=== PATIENT | female | born 1975 | race Caucasian/White ===

== ENCOUNTER 2018-05-13 09:15 | Outpatient (CLI) | payer BC ==
[2018-05-13 10:41] LABS: CALCIUM 9.1 mg/dL (8.4-11.0); CREATININE 0.92 mg/dL (0.55-1.30); POTASSIUM 3.5 mmol/L (3.5-5.1)
[2018-05-13 10:51] LABS: BILIRUBIN,URINE NEGATIVE (NEGATIVE); BLOOD, URINE NEGATIVE (NEGATIVE); CLARITY/URINE SL HAZY (CLEAR); COLOR,URINE YELLOW (YELLOW); GLUCOSE,URINE NEGATIVE (NEGATIVE); KETONES,URINE NEGATIVE (NEGATIVE); LEUKOCYTE ESTERASE ,URINE NEGATIVE (NEGATIVE); NITRITE, URINE NEGATIVE (NEGATIVE); PH,URINE 6.5 (5.0-8.0); PROTEIN URINE TRACE (NEGATIVE); UROBILINOGEN,URINE 0.2 (0.2-1.0)
[2018-05-13 10:56] LABS: ALBUMIN 3.4 g/dL (3.4-4.8); THYROID STIMULATING HORMONE 3.3 uIu/mL (0.34-4.82); TOTAL BILIRUBIN 0.3 mg/dL (0.0-1.0); URIC ACID 8.1 mg/dL (2.4-7.0)
[2018-05-13 11:18] LABS: BASOPHILS % (AUTO) 0.7 % (0.0-2.0); EOSINOPHILS % (AUTO) 1.3 % (0.0-4.0); HEMATOCRIT 40.1 % (36-48); HEMOGLOBIN 13.5 g/dL (12.0-16.0); LYMPHOCYTES % (AUTO) 31.7 % (20.5-51.5); MEAN CORPUSCULAR HEMOGLOBIN 29 pg (27-31); MEAN CORPUSCULAR HGB CONC 34 % (32-36); MEAN CORPUSCULAR VOLUME 86 fL (79.0-98.0); MONOCYTES % (AUTO) 6.3 % (1.7-9.3); PLATELET COUNT (AUTO) 266 K/uL (130-430); RED BLOOD CELL COUNT(AUTO) 4.64 MIL/uL (4.2-6.2); RED CELL DISTRIBUTION WIDTH 13.3 % (9.0-15.0); WHITE BLOOD COUNT (AUTO) 8.9 K/uL (4.8-10.8)
[2018-05-13 11:19] LABS: BASOPHILS # (AUTO) 0.1 K/uL (0.0-0.2); EOSINOPHILS # (AUTO) 0.1 K/uL (0.0-0.4); LYMPHOCYTES # (AUTO) 2.8 K/uL (1.0-5.5); MONOCYTES # (AUTO) 0.6 K/uL (0.0-1.0); NEUTROPHILS # (AUTO) 5.3 K/uL (1.8-7.7)
[2018-05-17 09:01] LABS: HEMOGLOBIN A1C 6.6 % (4.8-5.6)
== END 2018-05-13 18:45 | disposition home or self-care (01) ==
LOC: SUS 09:15
PROVIDERS: ATTEND Internal Medicine
DX: K80.20 Calculus of gallbladder without cholecystitis without obstruction (principal)
CPT/HCPCS: 36415; 76700-TC; 80053; 80061; 81003; 82306; 82607; 83036; 84443-TC; 84550-TC; 85025

== ENCOUNTER 2018-05-22 07:42 | Emergency (ER) | payer BC ==
[~2018-05-22] VITALS: Ht 162.6 cm; Wt 115.2 kg
--- NOTE | 2018-05-22 07:55 | NUR ---
Patient to ER bed 6 to gown for evaluation. Side rails up. Report given to Dion BARKER.
--- NOTE | 2018-05-22 07:55 | NUR ---
Pt c/o Right flank pain that radiates to right back and down right leg x 3 days. Pt states that pain onset while traveling to [place] and back from constant walking and wearing a back pack. Denies dysuria last BM yesterday, normal.
[2018-05-22 07:56] VITALS: BP_SYST 121
[2018-05-22] MEDS ORDERED: NACL 0.9% 1,000 ML IV ONE (08:22)
[2018-05-22] MEDS ORDERED: PANTOPRAZOLE SODIUM 40 MG/VIAL (PROTONIX) IVP ONE (08:30)
[2018-05-22] MEDS ORDERED: KETOROLAC TROMETHAMINE 30 MG VIAL IVP ONE (08:30)
--- NOTE | 2018-05-22 08:45 | NUR ---
Dr. Fisher at bedside.
[2018-05-22 09:00] LABS: CALCIUM 8.9 mg/dL (8.4-11.0); CREATININE 1.67 mg/dL (0.55-1.30); POTASSIUM 3.3 mmol/L (3.5-5.1)
--- NOTE | 2018-05-22 09:00 | NUR ---
Pt resting quietly, denies c/o pain or discomfort at this time.
[2018-05-22 09:04] LABS: ALBUMIN 3.4 g/dL (3.4-4.8); BASOPHILS % (AUTO) 0.5 % (0.0-2.0); EOSINOPHILS # (AUTO) 0.1 K/uL (0.0-0.4); EOSINOPHILS % (AUTO) 1.2 % (0.0-4.0); HEMATOCRIT 40.2 % (36-48); HEMOGLOBIN 13.4 g/dL (12.0-16.0); LYMPHOCYTES # (AUTO) 2.6 K/uL (1.0-5.5); LYMPHOCYTES % (AUTO) 27.1 % (20.5-51.5); MEAN CORPUSCULAR HEMOGLOBIN 29 pg (27-31); MEAN CORPUSCULAR HGB CONC 33 % (32-36); MEAN CORPUSCULAR VOLUME 88 fL (79.0-98.0); MONOCYTES # (AUTO) 0.7 K/uL (0.0-1.0); MONOCYTES % (AUTO) 7.7 % (1.7-9.3); NEUTROPHILS % (AUTO) 63.5 % (40.0-70.0); PLATELET COUNT (AUTO) 303 K/uL (130-430); RED BLOOD CELL COUNT(AUTO) 4.59 MIL/uL (4.2-6.2); RED CELL DISTRIBUTION WIDTH 13.3 % (9.0-15.0); TOTAL BILIRUBIN 0.5 mg/dL (0.0-1.0); WHITE BLOOD COUNT (AUTO) 9.4 K/uL (4.8-10.8)
[2018-05-22] MEDS ORDERED: fentaNYL CITRATE/PF 100 MCG/2 ML AMP IVP ONE (10:45)
--- NOTE | 2018-05-22 11:46 | NUR ---
Patient given written and verbal discharge instructions and verbalizes understanding. ER MD discussed with patient the results and treatment provided. Patient in stable condition. ID arm band removed. IV catheter removed intact and dressing applied, no active bleeding. Rx of Motrin, Medpack, Omeprazole given. Patient educated on pain management and to follow up with PMD. Pain Scale 3/10 tolerable for patient. Opportunity for questions provided and answered. Medication side effect fact sheet provided.
[2018-05-22 12:30] VITALS: BP_SYST 112
== END 2018-05-22 11:46 | disposition home or self-care (01) ==
LOC: SED 07:42
DX: M54.41 Lumbago with sciatica, right side (principal); R10.13 Epigastric pain; R10.11 Right upper quadrant pain; R03.0 Elevated blood-pressure reading, without diagnosis of hypertension; Z88.0 Allergy status to penicillin; Z88.1 Allergy status to other antibiotic agents; Z88.8 Allergy status to other drugs, medicaments and biological substances; Z90.49 Acquired absence of other specified parts of digestive tract
CPT/HCPCS: 36415; 76700; 80053; 83690; 85025; 96374; 96375; 99285; C9113; J1885; J3010; J7030

== ENCOUNTER 2018-05-25 08:20 | Outpatient (CLI) | payer BC ==
[2018-05-25] MEDS ORDERED: DIATR MEGLU/DIATRIZ SOD 30 ML SOLUTION PO ONE (08:36)
== END 2018-05-25 19:13 | disposition home or self-care (01) ==
LOC: SCT 08:20
PROVIDERS: ATTEND Internal Medicine
DX: R10.11 Right upper quadrant pain (principal); R11.2 Nausea with vomiting, unspecified; E11.9 Type 2 diabetes mellitus without complications
CPT/HCPCS: 74176; Q9964

== ENCOUNTER 2018-06-02 08:57 | Outpatient (CLI) | payer BC | END 2018-06-02 21:33 | disposition home or self-care (01) | LOC: SUS 08:57 | PROVIDERS: ATTEND Internal Medicine | DX: N88.8 Other specified noninflammatory disorders of cervix uteri (principal) | CPT/HCPCS: 76830-TC; 76857 ==

== ENCOUNTER 2018-07-30 19:17 | Inpatient (IN) | payer BC ==
[~2018-07-30] VITALS: Ht 165.1 cm; Wt 117.9 kg
[2018-07-30 19:17] VITALS: BP_SYST 145
[2018-07-30] MEDS ORDERED: fentaNYL CITRATE/PF 100 MCG/2 ML AMP IVP ONE (20:00)
[2018-07-30 20:02] LABS: BASOPHILS # (AUTO) 0.1 K/uL (0.0-0.2); BASOPHILS % (AUTO) 0.4 % (0.0-2.0); EOSINOPHILS # (AUTO) 0.1 K/uL (0.0-0.4); EOSINOPHILS % (AUTO) 0.7 % (0.0-4.0); HEMATOCRIT 35.4 % (36-48); HEMOGLOBIN 12.2 g/dL (12.0-16.0); LYMPHOCYTES # (AUTO) 2.3 K/uL (1.0-5.5); LYMPHOCYTES % (AUTO) 16.3 % (20.5-51.5); MEAN CORPUSCULAR HEMOGLOBIN 30 pg (27-31); MEAN CORPUSCULAR HGB CONC 35 % (32-36); MEAN CORPUSCULAR VOLUME 85 fL (79.0-98.0); MONOCYTES # (AUTO) 0.9 K/uL (0.0-1.0); MONOCYTES % (AUTO) 6.1 % (1.7-9.3); NEUTROPHILS % (AUTO) 76.5 % (40.0-70.0); PLATELET COUNT (AUTO) 280 K/uL (130-430); RED BLOOD CELL COUNT(AUTO) 4.15 MIL/uL (4.2-6.2); RED CELL DISTRIBUTION WIDTH 13.3 % (9.0-15.0); WHITE BLOOD COUNT (AUTO) 14.4 K/uL (4.8-10.8)
[2018-07-30 20:09] LABS: CALCIUM 8.9 mg/dL (8.4-11.0); CREATININE 1.04 mg/dL (0.55-1.30)
[2018-07-30 20:11] LABS: POTASSIUM 2.9 mmol/L (3.5-5.1)
[2018-07-30 20:13] LABS: ALBUMIN 3.3 g/dL (3.4-4.8); TOTAL BILIRUBIN 0.6 mg/dL (0.0-1.0)
[2018-07-30 20:15] LABS: PROTHROMBIN TIME 10.2 SECS (9.5-12.5)
[2018-07-30] MEDS ORDERED: NACL 0.9% 1,000 ML IV ONE (20:15)
[2018-07-30] MEDS ORDERED: POTASSIUM CHLORIDE 40 MEQ in NS 250 ML IV ONE (20:15)
[2018-07-30] MEDS ORDERED: KCL 20 mEq in 100 mL (PREMIX) 200 ML IV ONE (20:24)
[2018-07-30] MEDS ORDERED: MORPHINE 4 MG/ML INJ. SYRINGE IVP ONE (20:45)
[2018-07-30] MEDS ORDERED: LORazepam 2 MG/ML VIAL (FOR ER USE) IVP ONE (20:45)
[2018-07-30] MEDS ORDERED: METF1000 PO (20:45)
[2018-07-30] MEDS ORDERED: OMEP20CA10 PO (20:45)
[2018-07-30] MEDS ORDERED: METO-540 PO (20:45)
[2018-07-30] MEDS ORDERED: NACL 0.9% 2,000 ML IV ONE (20:45)
[2018-07-30] MEDS ORDERED: TRAM100T34 PO (20:45)
[2018-07-30 20:47] LABS: BILIRUBIN,URINE NEGATIVE (NEGATIVE); BLOOD, URINE NEGATIVE (NEGATIVE); CLARITY/URINE HAZY (CLEAR); COLOR,URINE YELLOW (YELLOW); GLUCOSE,URINE NEGATIVE (NEGATIVE); KETONES,URINE NEGATIVE (NEGATIVE); LEUKOCYTE ESTERASE ,URINE NEGATIVE (NEGATIVE); NITRITE, URINE NEGATIVE (NEGATIVE); PROTEIN URINE NEGATIVE (NEGATIVE); UROBILINOGEN,URINE 0.2 (0.2-1.0)
[2018-07-30 20:50] LABS: BACTERIA,URINE MODERATE /HPF (None Seen); MUCUS,URINE None Seen /LPF (None Seen); RBC,URINE NONE SEEN /HPF (0-3); WBC,URINE 0-3 /HPF (0-3)
[2018-07-30] MEDS ORDERED: ACETAMINOPHEN 500 MG TABLET PO ONE (21:00)
[2018-07-30] MEDS ORDERED: ONDANSETRON HCL 4 MG/2 ML VIAL IVP PRN (22:15)
[2018-07-30] MEDS ORDERED: ACETAMINOPHEN 325 MG TABLET PO PRN (22:15)
[2018-07-30 22:34] VITALS: BP_SYST 132
[2018-07-30] MEDS ORDERED: VANCOMYCIN HCL 1000 MG/VIAL IV ONE (22:57)
[2018-07-30 23:15] VITALS: BP_SYST 138
[2018-07-31] VITALS (7 sets, daily range): BP systolic 104–131
[2018-07-31] MEDS ORDERED: VANCOMYCIN HCL 1,000 MG in NS 250 ML IV ONE ×2
[2018-07-31] MEDS: MORPHINE 4 MG/ML INJ. SYRINGE IVP PRN ×8 (00:45→20:06)
[2018-07-31] MEDS: NACL 0.9% 1,000 ML IV SCH ×3 (05:53→20:10)
[2018-07-31] MEDS ORDERED: DEXTROSE 50% JECT 50 ML DISP.SYRIN IVP PRN (15:00)
[2018-07-31] MEDS ORDERED: OMEPRAZOLE 20 MG CAPSULE.DR (PriLOSEC) PO SCH (15:00)
[2018-07-31 15:14] LABS: BASOPHILS # (AUTO) 0.1 K/uL (0.0-0.2); BASOPHILS % (AUTO) 0.7 % (0.0-2.0); EOSINOPHILS # (AUTO) 0.1 K/uL (0.0-0.4); HEMATOCRIT 29.9 % (36-48); HEMOGLOBIN 10.2 g/dL (12.0-16.0); LYMPHOCYTES # (AUTO) 1.7 K/uL (1.0-5.5); LYMPHOCYTES % (AUTO) 17.8 % (20.5-51.5); MEAN CORPUSCULAR HEMOGLOBIN 30 pg (27-31); MEAN CORPUSCULAR HGB CONC 34 % (32-36); MONOCYTES # (AUTO) 0.7 K/uL (0.0-1.0); MONOCYTES % (AUTO) 7.7 % (1.7-9.3); NEUTROPHILS # (AUTO) 6.9 K/uL (1.8-7.7); NEUTROPHILS % (AUTO) 72.8 % (40.0-70.0); PLATELET COUNT (AUTO) 231 K/uL (130-430); RED BLOOD CELL COUNT(AUTO) 3.43 MIL/uL (4.2-6.2)
[2018-07-31] MEDS ORDERED: MINERAL OIL 30 ML UDC PO ONE (15:15)
[2018-07-31] MEDS ORDERED: MAGNESIUM CITRATE 300 ML ORAL SOLUTION PO ONE (15:15)
[2018-07-31] MEDS ORDERED: PANTOPRAZOLE GRANULES PACKET 40 MG GT ONE (15:15)
[2018-07-31] MEDS ORDERED: LACTOBACILLUS RHAMNOSUS GG 1 CAP CAPSULE PO ONE (15:15)
[2018-07-31] MEDS ORDERED: BISACODYL 10 MG/SUPPOSITORY RC PRN (15:15)
[2018-07-31 15:18] LABS: WHITE BLOOD COUNT (AUTO) 9.5 K/uL (4.8-10.8)
[2018-07-31 15:19] LABS: MEAN CORPUSCULAR VOLUME 87 fL (79.0-98.0)
[2018-07-31 15:20] LABS: CALCIUM 8.1 mg/dL (8.4-11.0); CREATININE 0.98 mg/dL (0.55-1.30); POTASSIUM 3.1 mmol/L (3.5-5.1)
[2018-07-31] MEDS: BISACODYL 10 MG/SUPPOSITORY RC ONE ×2 (15:25→15:50)
[2018-07-31] MEDS: POTASSIUM CHLORIDE 20 MEQ TAB.PRT.SR PO SCH ×2 (15:25→20:02)
[2018-07-31] MEDS ORDERED: TEMAZEPAM 15 MG CAPSULE PO PRN (15:30)
[2018-07-31] MEDS ORDERED: HYDROcodone/ACETAMIN 10-325 MG TAB PO PRN (15:30)
[2018-07-31] MEDS ORDERED: VANCOMYCIN HCL 2,000 MG in NS 250 ML IV ONE (16:00)
[2018-07-31] MEDS ORDERED: POTASSIUM CHLORIDE 20 MEQ TAB.PRT.SR PO ONE (16:30)
[2018-07-31] MEDS: metFORMIN HCL 500 MG TABLET PO SCH (17:02)
[2018-07-31] MEDS: METHOCARBAMOL 500 MG TABLET PO SCH ×2 (17:02→20:02)
[2018-07-31] MEDS: KETOROLAC TROMETHAMINE 10 MG TABLET (TORADOL) PO SCH (17:03)
[2018-07-31] MEDS: LACTOBACILLUS RHAMNOSUS GG 1 CAP CAPSULE PO SCH (20:01)
[2018-07-31] MEDS: METOPROLOL SUCCINATE 25 MG TAB.SR.24H (TOPROL XL) PO SCH (20:11)
[2018-07-31] MEDS ORDERED: LEVOFLOXACIN 500 MG/D5W 100 ML IV SCH (21:00)
[2018-07-31] MEDS: MEROPENEM 1 GM in NS 100 ML IV SCH (21:25)
[2018-08-01] MEDS: NACL 0.9% 1,000 ML IV SCH ×2 (00:41→13:33)
[2018-08-01] MEDS: MORPHINE 4 MG/ML INJ. SYRINGE IVP PRN ×5 (00:42→22:08)
[2018-08-01] MEDS: VANCOMYCIN HCL 1,500 MG in NS 250 ML IV SCH ×2 (04:10→17:37)
[2018-08-01] MEDS: MEROPENEM 1 GM in NS 100 ML IV SCH ×3 (06:12→21:59)
[2018-08-01 07:12] LABS: BASOPHILS # (AUTO) 0.1 K/uL (0.0-0.2); BASOPHILS % (AUTO) 0.5 % (0.0-2.0); EOSINOPHILS # (AUTO) 0.1 K/uL (0.0-0.4); EOSINOPHILS % (AUTO) 0.8 % (0.0-4.0); HEMATOCRIT 29.3 % (36-48); HEMOGLOBIN 9.9 g/dL (12.0-16.0); LYMPHOCYTES # (AUTO) 1.8 K/uL (1.0-5.5); LYMPHOCYTES % (AUTO) 16.8 % (20.5-51.5); MEAN CORPUSCULAR HEMOGLOBIN 30 pg (27-31); MEAN CORPUSCULAR HGB CONC 34 % (32-36); MEAN CORPUSCULAR VOLUME 87 fL (79.0-98.0); MONOCYTES # (AUTO) 0.7 K/uL (0.0-1.0); MONOCYTES % (AUTO) 6.1 % (1.7-9.3); NEUTROPHILS # (AUTO) 8.1 K/uL (1.8-7.7); NEUTROPHILS % (AUTO) 75.8 % (40.0-70.0); PLATELET COUNT (AUTO) 236 K/uL (130-430); RED BLOOD CELL COUNT(AUTO) 3.35 MIL/uL (4.2-6.2); WHITE BLOOD COUNT (AUTO) 10.8 K/uL (4.8-10.8)
[2018-08-01 07:27] LABS: CALCIUM 8.2 mg/dL (8.4-11.0); POTASSIUM 3.3 mmol/L (3.5-5.1)
[2018-08-01 08:30] VITALS: BP_SYST 115
[2018-08-01] MEDS: POTASSIUM CHLORIDE 20 MEQ TAB.PRT.SR PO SCH ×3 (08:39→21:54)
[2018-08-01] MEDS: METHOCARBAMOL 500 MG TABLET PO SCH ×4 (08:39→21:54)
[2018-08-01] MEDS: LACTOBACILLUS RHAMNOSUS GG 1 CAP CAPSULE PO SCH ×2 (08:39→21:53)
[2018-08-01] MEDS: metFORMIN HCL 500 MG TABLET PO SCH ×2 (08:42→17:26)
[2018-08-01] MEDS: KETOROLAC TROMETHAMINE 10 MG TABLET (TORADOL) PO SCH ×3 (08:43→17:26)
[2018-08-01] MEDS: METOPROLOL SUCCINATE 25 MG TAB.SR.24H (TOPROL XL) PO SCH ×2 (08:51→21:54)
[2018-08-01] MEDS: PANTOPRAZOLE SODIUM 40 MG TAB PO SCH (08:56)
[2018-08-01] MEDS ORDERED: PANTOPRAZOLE GRANULES PACKET 40 MG GT SCH (09:00)
[2018-08-01] MEDS: INSULIN REGULAR, HUMAN 100 UNITS/ML, 10 ML VIAL (novoLIN R) SUBCUT PRN ×2 (11:55→17:29)
[2018-08-01 13:54] VITALS: BP_SYST 110
[2018-08-01] MEDS ORDERED: CHOLECALCIFEROL (VITAMIN D3) 2,000 UNIT TABLET PO ONE (17:15)
[2018-08-01] MEDS ORDERED: MULTIVITS,CA,MINERALS/IRON/FA 1 TABLET PO ONE (17:15)
[2018-08-01 17:42] VITALS: BP_SYST 108
[2018-08-01 20:00] VITALS: BP_SYST 116
[2018-08-02] VITALS: BP_SYST 103
[2018-08-02] MEDS: MORPHINE 4 MG/ML INJ. SYRINGE IVP PRN (03:39)
[2018-08-02] MEDS: VANCOMYCIN HCL 1,500 MG in NS 250 ML IV SCH ×2 (05:07→16:23)
[2018-08-02] MEDS: MEROPENEM 1 GM in NS 100 ML IV SCH ×3 (06:42→21:59)
[2018-08-02 06:53] LABS: CALCIUM 8.7 mg/dL (8.4-11.0); CREATININE 0.9 mg/dL (0.55-1.30); POTASSIUM 3.6 mmol/L (3.5-5.1)
[2018-08-02 07:09] LABS: BASOPHILS % (AUTO) 0.1 % (0.0-2.0); EOSINOPHILS # (AUTO) 0.2 K/uL (0.0-0.4); EOSINOPHILS % (AUTO) 1.9 % (0.0-4.0); HEMATOCRIT 28.8 % (36-48); HEMOGLOBIN 9.3 g/dL (12.0-16.0); LYMPHOCYTES # (AUTO) 1.8 K/uL (1.0-5.5); LYMPHOCYTES % (AUTO) 20.5 % (20.5-51.5); MEAN CORPUSCULAR HEMOGLOBIN 28 pg (27-31); MEAN CORPUSCULAR HGB CONC 32 % (32-36); MEAN CORPUSCULAR VOLUME 88 fL (79.0-98.0); MONOCYTES # (AUTO) 0.6 K/uL (0.0-1.0); MONOCYTES % (AUTO) 6.6 % (1.7-9.3); NEUTROPHILS % (AUTO) 70.9 % (40.0-70.0); PLATELET COUNT (AUTO) 256 K/uL (130-430); RED BLOOD CELL COUNT(AUTO) 3.29 MIL/uL (4.2-6.2); RED CELL DISTRIBUTION WIDTH 12.9 % (9.0-15.0); WHITE BLOOD COUNT (AUTO) 8.6 K/uL (4.8-10.8)
[2018-08-02 08:00] VITALS: BP_SYST 119
[2018-08-02] MEDS: LACTOBACILLUS RHAMNOSUS GG 1 CAP CAPSULE PO SCH ×2 (08:19→21:58)
[2018-08-02] MEDS: POTASSIUM CHLORIDE 20 MEQ TAB.PRT.SR PO SCH ×3 (08:19→21:59)
[2018-08-02] MEDS: METOPROLOL SUCCINATE 25 MG TAB.SR.24H (TOPROL XL) PO SCH ×2 (08:19→21:59)
[2018-08-02] MEDS: METHOCARBAMOL 500 MG TABLET PO SCH ×4 (08:19→21:58)
[2018-08-02] MEDS: metFORMIN HCL 500 MG TABLET PO SCH ×2 (08:20→18:07)
[2018-08-02] MEDS: PANTOPRAZOLE SODIUM 40 MG TAB PO SCH (08:20)
[2018-08-02] MEDS: MULTIVITS,CA,MINERALS/IRON/FA 1 TABLET PO SCH (08:20)
[2018-08-02] MEDS: CHOLECALCIFEROL (VITAMIN D3) 2,000 UNIT TABLET PO SCH (08:20)
[2018-08-02] MEDS: KETOROLAC TROMETHAMINE 10 MG TABLET (TORADOL) PO SCH ×3 (08:21→18:08)
[2018-08-02 08:43] LABS: TOTAL IRON BIND. CAPACITY 175 ug/dL (250-450)
[2018-08-02 16:00] VITALS: BP_SYST 122
[2018-08-02] MEDS ORDERED: SOD FERRIC GLUC COMPLEX/SUC 125 MG in NS 100 ML IV SCH (18:00)
[2018-08-02 20:00] VITALS: BP_SYST 126
[2018-08-03] VITALS: BP_SYST 122
[2018-08-03] MEDS: VANCOMYCIN HCL 1,500 MG in NS 250 ML IV SCH (05:13)
[2018-08-03] MEDS: MEROPENEM 1 GM in NS 100 ML IV SCH (06:41)
[2018-08-03 08:05] VITALS: BP_SYST 124
[2018-08-03] MEDS: metFORMIN HCL 500 MG TABLET PO SCH (08:35)
[2018-08-03] MEDS: KETOROLAC TROMETHAMINE 10 MG TABLET (TORADOL) PO SCH ×2 (08:36→12:18)
[2018-08-03] MEDS: LACTOBACILLUS RHAMNOSUS GG 1 CAP CAPSULE PO SCH (08:36)
[2018-08-03] MEDS: METHOCARBAMOL 500 MG TABLET PO SCH ×2 (08:37→12:18)
[2018-08-03] MEDS: POTASSIUM CHLORIDE 20 MEQ TAB.PRT.SR PO SCH (08:37)
[2018-08-03] MEDS: CHOLECALCIFEROL (VITAMIN D3) 2,000 UNIT TABLET PO SCH (08:37)
[2018-08-03] MEDS: MULTIVITS,CA,MINERALS/IRON/FA 1 TABLET PO SCH (08:38)
[2018-08-03] MEDS: PANTOPRAZOLE SODIUM 40 MG TAB PO SCH (08:38)
[2018-08-03] MEDS: METOPROLOL SUCCINATE 25 MG TAB.SR.24H (TOPROL XL) PO SCH (08:39)
[2018-08-03 12:02] VITALS: BP_SYST 121
[2018-08-03] MEDS ORDERED: L.RH1CAP PO (14:14)
[2018-08-03] MEDS ORDERED: METH500T PO (14:15)
[2018-08-03] MEDS ORDERED: DICL75TA5 PO (14:17)
[2018-08-03] MEDS ORDERED: DOXY-168 PO (14:20)
[2018-08-03 14:23] VITALS: BP_SYST 121
== END 2018-08-03 14:45 | disposition home or self-care (01) | DRG 919 ==
LOC: SED 19:17 → STU 21:00 → SMU 08-03 12:55
PROVIDERS: ADMIT Internal Medicine; ATTEND Internal Medicine
DX: K91.873 Postprocedural seroma of a digestive system organ or structure following other procedure (principal); A41.9 Sepsis, unspecified organism; E44.1 Mild protein-calorie malnutrition; Z68.41 Body mass index [BMI] 40.0-44.9, adult; N39.0 Urinary tract infection, site not specified; L02.211 Cutaneous abscess of abdominal wall; G89.4 Chronic pain syndrome; I10 Essential (primary) hypertension; F17.210 Nicotine dependence, cigarettes, uncomplicated; E87.6 Hypokalemia; E66.01 Morbid (severe) obesity due to excess calories; E11.40 Type 2 diabetes mellitus with diabetic neuropathy, unspecified; K59.00 Constipation, unspecified; D64.9 Anemia, unspecified; Y83.8 Other surgical procedures as the cause of abnormal reaction of the patient, or of later complication, without mention of misadventure at the time of the procedure; Y82.8 Other medical devices associated with adverse incidents; Y92.89 Other specified places as the place of occurrence of the external cause; Z88.0 Allergy status to penicillin; Z88.2 Allergy status to sulfonamides; Z79.4 Long term (current) use of insulin; Z88.8 Allergy status to other drugs, medicaments and biological substances; Z79.899 Other long term (current) drug therapy
CPT/HCPCS: 36415; 71045; 80048; 80053; 80202-TC; 81000-TC; 82272; 82607; 82962; 83540-TC; 83550-TC; 83605; 83735-TC; 85025; 85610-TC; 85730-TC; 87040-TC; 87086; 94010; 94760; 96365; 96366; 96375; 96379; 99291; G0378; J1815; J1956; J2060; J2185; J2270; J2916; J3010; J3370; J3480; J7030; J7042; J7050

== ENCOUNTER 2019-03-22 15:21 | Outpatient (CLI) | payer BC ==
[~2019-03-22 15:21] MED LIST: DICL75TA5 PO; DOXY-168 PO; L.RH1CAP PO; METF1000 PO; METH500T PO; METO-540 PO; OMEP20CA10 PO; TRAM100T34 PO
== END 2019-03-22 20:08 | disposition home or self-care (01) ==
LOC: SRD 15:21
PROVIDERS: ATTEND Internal Medicine
DX: J18.9 Pneumonia, unspecified organism (principal)
CPT/HCPCS: 71046-TC

== ENCOUNTER 2019-04-11 22:55 | Emergency (ER) | payer BC ==
[~2019-04-11] VITALS: Ht 165.1 cm; Wt 121.6 kg
[2019-04-11 22:59] VITALS: BP_SYST 159
== END 2019-04-12 00:15 | disposition left against medical advice (07) ==
LOC: SED 22:55
DX: H92.09 Otalgia, unspecified ear (principal); R20.2 Paresthesia of skin; Z53.21 Procedure and treatment not carried out due to patient leaving prior to being seen by health care provider

== ENCOUNTER 2019-04-12 06:58 | Emergency (ER) | payer BC ==
[~2019-04-12] VITALS: Ht 165.1 cm; Wt 121.6 kg
[2019-04-12 07:00] VITALS: BP_SYST 136
[2019-04-12 08:13] VITALS: BP_SYST 136
== END 2019-04-12 08:12 | disposition home or self-care (01) ==
LOC: SED 06:58
DX: E11.40 Type 2 diabetes mellitus with diabetic neuropathy, unspecified (principal); M79.2 Neuralgia and neuritis, unspecified; R20.2 Paresthesia of skin; I10 Essential (primary) hypertension; Z88.0 Allergy status to penicillin; Z88.1 Allergy status to other antibiotic agents; Z88.8 Allergy status to other drugs, medicaments and biological substances; Z79.899 Other long term (current) drug therapy
CPT/HCPCS: 99283

== ENCOUNTER 2019-08-01 13:27 | Emergency (ER) | payer BC ==
[~2019-08-01] VITALS: Ht 165.1 cm; Wt 122.5 kg
[~2019-08-01 13:27] MED LIST changes: -OMEP20CA10 PO; +OMEP20CA11 PO
[2019-08-01 13:38] VITALS: BP_SYST 146
[2019-08-01] MEDS ORDERED: IBUPROFEN 800 MG TABLET PO ONE (14:00)
[2019-08-01] MEDS ORDERED: CLINDAMYCIN HCL 150 MG CAPSULE PO ONE (14:00)
[2019-08-01] MEDS ORDERED: DIPH-TET-PERTUS Vaccine 0.5 ML VIAL (ADACEL) I.M. ONE (14:00)
[2019-08-01 14:46] VITALS: BP_SYST 138
== END 2019-08-01 14:46 | disposition home or self-care (01) ==
LOC: SED 13:27
DX: S61.432A Puncture wound without foreign body of left hand, initial encounter (principal); E11.40 Type 2 diabetes mellitus with diabetic neuropathy, unspecified; I10 Essential (primary) hypertension; G89.29 Other chronic pain; Z88.1 Allergy status to other antibiotic agents; Z88.8 Allergy status to other drugs, medicaments and biological substances; Z88.0 Allergy status to penicillin; Z79.899 Other long term (current) drug therapy; W54.0XXA Bitten by dog, initial encounter; Y93.89 Activity, other specified; Y92.89 Other specified places as the place of occurrence of the external cause; Y99.8 Other external cause status
CPT/HCPCS: 90715; 99283; J7030

== ENCOUNTER 2019-11-01 12:43 | Emergency (ER) | payer BC ==
[~2019-11-01] VITALS: Ht 165.1 cm; Wt 124.7 kg
--- NOTE | 2019-11-01 13:00 | NUR ---
PATIENT TO ER #4
[2019-11-01] MEDS ORDERED: ALPR0.25 PO (13:03)
[2019-11-01] MEDS ORDERED: LOSA100T23 PO (13:03)
[2019-11-01] MEDS ORDERED: GABA300T25 PO (13:03)
[2019-11-01] MEDS ORDERED: FURO-150 PO (13:03)
[2019-11-01 13:04] VITALS: BP_SYST 109
--- NOTE | 2019-11-01 13:30 | NUR ---
Patient presents to ER C/O vomiting. Patient A&Ox4, ambulatory to ER, afebrile, skin pink and warm, nausea, vomiting, denies diarrhea, pain 8 /10. Patient states she has sore throat, nasal congestion & cough x1 week, nausea, vomiting and abdominal pain x3 days, today sharp pain to left antterior abdomen. Pt state she has Hx HTN , DM, peripheral neuropathy.
--- NOTE | 2019-11-01 14:00 | NUR ---
ER Dr. Luna at bedside examining patient.
[2019-11-01] MEDS ORDERED: NACL 0.9% 1,000 ML IV ONE (14:08)
[2019-11-01] MEDS ORDERED: ONDANSETRON HCL 4 MG/2 ML VIAL IVP ONE ×2 (14:15→15:30)
[2019-11-01 14:28] LABS: BASOPHILS # (AUTO) 0.1 K/uL (0.0-0.2); BASOPHILS % (AUTO) 0.7 % (0.0-2.0); EOSINOPHILS # (AUTO) 0.1 K/uL (0.0-0.4); EOSINOPHILS % (AUTO) 0.6 % (0.0-4.0); HEMATOCRIT 37.5 % (36-48); HEMOGLOBIN 12.2 g/dL (12.0-16.0); LYMPHOCYTES # (AUTO) 2.7 K/uL (1.0-5.5); LYMPHOCYTES % (AUTO) 25.3 % (20.5-51.5); MEAN CORPUSCULAR HEMOGLOBIN 26 pg (27-31); MEAN CORPUSCULAR HGB CONC 33 % (32-36); MEAN CORPUSCULAR VOLUME 79 fL (79.0-98.0); MONOCYTES # (AUTO) 0.7 K/uL (0.0-1.0); MONOCYTES % (AUTO) 6.9 % (1.7-9.3); NEUTROPHILS # (AUTO) 7.1 K/uL (1.8-7.7); NEUTROPHILS % (AUTO) 66.5 % (40.0-70.0); PLATELET COUNT (AUTO) 296 K/uL (130-430); RED BLOOD CELL COUNT(AUTO) 4.76 MIL/uL (4.2-6.2); RED CELL DISTRIBUTION WIDTH 15.6 % (9.0-15.0); WHITE BLOOD COUNT (AUTO) 10.6 K/uL (4.8-10.8)
[2019-11-01 14:41] LABS: CALCIUM 8.5 mg/dL (8.4-11.0); CREATININE 1.1 mg/dL (0.55-1.30); POTASSIUM 3.8 mmol/L (3.5-5.1)
[2019-11-01 14:46] LABS: ALBUMIN 3.6 g/dL (3.4-4.8); TOTAL BILIRUBIN 0.4 mg/dL (0.0-1.0)
[2019-11-01 16:07] LABS: BILIRUBIN,URINE NEGATIVE (NEGATIVE); BLOOD, URINE NEGATIVE (NEGATIVE); COLOR,URINE YELLOW (YELLOW); GLUCOSE,URINE NEGATIVE (NEGATIVE); KETONES,URINE NEGATIVE (NEGATIVE); LEUKOCYTE ESTERASE ,URINE NEGATIVE (NEGATIVE); NITRITE, URINE NEGATIVE (NEGATIVE); PROTEIN URINE TRACE (NEGATIVE); UROBILINOGEN,URINE 0.2 (0.2-1.0)
[2019-11-01 16:08] LABS: CLARITY/URINE HAZY (CLEAR)
[2019-11-01 16:33] LABS: RBC,URINE NONE SEEN /HPF (0-3)
[2019-11-01 16:34] LABS: BACTERIA,URINE FEW /HPF (None Seen); MUCUS,URINE None Seen /LPF (None Seen)
[2019-11-01 16:44] VITALS: BP_SYST 116
--- NOTE | 2019-11-01 16:44 | NUR ---
Patient given written and verbal discharge instructions and verbalizes understanding. ER MD discussed with patient the results and treatment provided. Patient in stable condition. ID arm band removed. IV catheter removed intact and dressing applied, no active bleeding. Rx of zofran & macrobid given. Patient educated on pain management and to follow up with PMD. Pain Scale . Opportunity for questions provided and answered. Medication side effect fact sheet provided.
[2019-11-01] MEDS ORDERED: IPRATROPIUM/ALBUTEROL SULFATE 3 ML AMPUL.NEB (DUONEB) ONE (17:32)
== END 2019-11-01 16:44 | disposition home or self-care (01) ==
LOC: SED 12:43
DX: A08.4 Viral intestinal infection, unspecified (principal); N39.0 Urinary tract infection, site not specified; I10 Essential (primary) hypertension; E11.9 Type 2 diabetes mellitus without complications; Z88.0 Allergy status to penicillin; Z88.1 Allergy status to other antibiotic agents; Z88.8 Allergy status to other drugs, medicaments and biological substances; Z79.899 Other long term (current) drug therapy; Z79.82 Long term (current) use of aspirin
CPT/HCPCS: 36415; 80053; 81000; 83690; 85025; 96374; 96375; 99284; J2405; J7030

== ENCOUNTER 2020-03-08 08:34 | Outpatient (CLI) | payer BC ==
[~2020-03-08 08:34] MED LIST changes: +ALPR0.25 PO; -DICL75TA5 PO; -DOXY-168 PO; +FURO-150 PO; +GABA300T25 PO; -L.RH1CAP PO; +LOSA100T23 PO; -METH500T PO; -OMEP20CA11 PO; -TRAM100T34 PO
[2020-03-08 09:28] LABS: BASOPHILS % (AUTO) 0.4 % (0.0-2.0); EOSINOPHILS # (AUTO) 0.1 K/uL (0.0-0.4); EOSINOPHILS % (AUTO) 1.3 % (0.0-4.0); HEMATOCRIT 39.5 % (36-48); HEMOGLOBIN 12.8 g/dL (12.0-16.0); LYMPHOCYTES # (AUTO) 1.8 K/uL (1.0-5.5); LYMPHOCYTES % (AUTO) 27.6 % (20.5-51.5); MEAN CORPUSCULAR HEMOGLOBIN 26 pg (27-31); MEAN CORPUSCULAR HGB CONC 32 % (32-36); MEAN CORPUSCULAR VOLUME 82 fL (79.0-98.0); MONOCYTES # (AUTO) 0.5 K/uL (0.0-1.0); MONOCYTES % (AUTO) 7.8 % (1.7-9.3); NEUTROPHILS % (AUTO) 62.9 % (40.0-70.0); PLATELET COUNT (AUTO) 293 K/uL (130-430); RED BLOOD CELL COUNT(AUTO) 4.84 MIL/uL (4.2-6.2); RED CELL DISTRIBUTION WIDTH 16.9 % (9.0-15.0); WHITE BLOOD COUNT (AUTO) 6.4 K/uL (4.8-10.8)
[2020-03-08 09:59] LABS: BILIRUBIN,URINE NEGATIVE (NEGATIVE); BLOOD, URINE 1+ (NEGATIVE); CLARITY/URINE CLEAR (CLEAR); COLOR,URINE YELLOW (YELLOW); GLUCOSE,URINE NEGATIVE (NEGATIVE); KETONES,URINE NEGATIVE (NEGATIVE); LEUKOCYTE ESTERASE ,URINE NEGATIVE (NEGATIVE); NITRITE, URINE NEGATIVE (NEGATIVE); PROTEIN URINE NEGATIVE (NEGATIVE); UROBILINOGEN,URINE 0.2 (0.2-1.0)
[2020-03-08 10:05] LABS: BACTERIA,URINE RARE /HPF (None Seen); WBC,URINE 0-3 /HPF (0-3)
[2020-03-08 10:06] LABS: ALBUMIN 3.4 g/dL (3.4-4.8); CALCIUM 9.1 mg/dL (8.4-11.0); CREATININE 1.07 mg/dL (0.55-1.30); POTASSIUM 4.1 mmol/L (3.5-5.1); THYROID STIMULATING HORMONE 4.35 uIu/mL (0.34-4.82); TOTAL BILIRUBIN 0.3 mg/dL (0.0-1.0); URIC ACID 6.1 mg/dL (2.4-7.0)
== END 2020-03-08 20:14 | disposition home or self-care (01) ==
LOC: SUS 08:34
PROVIDERS: ATTEND Internal Medicine
DX: R42 Dizziness and giddiness (principal); I10 Essential (primary) hypertension; E11.40 Type 2 diabetes mellitus with diabetic neuropathy, unspecified; E55.9 Vitamin D deficiency, unspecified; E66.01 Morbid (severe) obesity due to excess calories; M10.9 Gout, unspecified; E78.5 Hyperlipidemia, unspecified
CPT/HCPCS: 36415; 80053; 80061; 81000-TC; 82306; 82607; 83036; 84443-TC; 84550-TC; 85025; 93880

== ENCOUNTER 2020-06-03 08:28 | Emergency (ER) | payer BC ==
[~2020-06-03] VITALS: Ht 165.1 cm; Wt 124.7 kg
[2020-06-03 08:34] VITALS: BP_SYST 119
[2020-06-03 09:30] VITALS: BP_SYST 122
[2020-06-03] MEDS ORDERED: DEXAMETHASONE SOD PHOSPHATE 10 MG/ML VIAL IM ONE (09:30)
== END 2020-06-03 09:30 | disposition home or self-care (01) ==
LOC: SED 08:28
DX: L03.116 Cellulitis of left lower limb (principal); L03.115 Cellulitis of right lower limb; I10 Essential (primary) hypertension; E11.40 Type 2 diabetes mellitus with diabetic neuropathy, unspecified; F17.200 Nicotine dependence, unspecified, uncomplicated; Z79.899 Other long term (current) drug therapy; Z88.0 Allergy status to penicillin; Z88.1 Allergy status to other antibiotic agents
CPT/HCPCS: 96372; 99283; J1100

== ENCOUNTER 2020-07-19 10:14 | Emergency (ER) | payer BC, SELFPAY ==
[~2020-07-19] VITALS: Ht 165.1 cm; Wt 123.8 kg
[2020-07-19 10:20] VITALS: BP_SYST 108
--- NOTE | 2020-07-19 10:30 | NUR ---
Patient triaged and placed in waiting room outside. VSS and patient appears in no acute distress at this time. Accompanied by , awaiting available bed, and MD notified of need for MSE.
--- NOTE | 2020-07-19 10:40 | NUR ---
Patient presented to ER C/O CHEST PAIN. Patient Ambulatory to ER, afebrile, skin pink and warm, pain 8/10, denies N/V/D, cough, respirations equal bilat. Patient report sudden onset chest pain with SOB.
--- NOTE | 2020-07-19 11:25 | NUR ---
ER Dr. Tristan at bedside examining patient.
[2020-07-19 12:42] VITALS: BP_SYST 108
--- NOTE | 2020-07-19 12:43 | NUR ---
Patient given written and verbal discharge instructions and verbalizes understanding. ER MD discussed with patient the results and treatment provided. Patient in stable condition. ID arm band removed. No Rx given. Patient educated on pain management and to follow up with PMD. Pain Scale 2/10. Opportunity for questions provided and answered. Medication side effect fact sheet provided.
== END 2020-07-19 12:43 | disposition home or self-care (01) ==
LOC: SED 10:14
DX: F41.0 Panic disorder [episodic paroxysmal anxiety] (principal); I10 Essential (primary) hypertension; E11.9 Type 2 diabetes mellitus without complications; Z88.0 Allergy status to penicillin; Z88.1 Allergy status to other antibiotic agents; Z88.8 Allergy status to other drugs, medicaments and biological substances; Z79.84 Long term (current) use of oral hypoglycemic drugs; Z79.899 Other long term (current) drug therapy
CPT/HCPCS: 71045; 93005; 99283

== ENCOUNTER 2020-10-23 08:56 | Outpatient (CLI) | payer BC, SELFPAY ==
[2020-10-23 09:43] LABS: BASOPHILS % (AUTO) 0.4 % (0.0-2.0); EOSINOPHILS # (AUTO) 0.1 K/uL (0.0-0.4); EOSINOPHILS % (AUTO) 1.9 % (0.0-4.0); HEMATOCRIT 35.5 % (36-48); HEMOGLOBIN 11.3 g/dL (12.0-16.0); LYMPHOCYTES # (AUTO) 1.8 K/uL (1.0-5.5); LYMPHOCYTES % (AUTO) 29.9 % (20.5-51.5); MEAN CORPUSCULAR HEMOGLOBIN 24 pg (27-31); MEAN CORPUSCULAR HGB CONC 32 % (32-36); MEAN CORPUSCULAR VOLUME 74 fL (79.0-98.0); MONOCYTES # (AUTO) 0.5 K/uL (0.0-1.0); MONOCYTES % (AUTO) 7.7 % (1.7-9.3); NEUTROPHILS # (AUTO) 3.7 K/uL (1.8-7.7); NEUTROPHILS % (AUTO) 60.1 % (40.0-70.0); PLATELET COUNT (AUTO) 293 K/uL (130-430); RED BLOOD CELL COUNT(AUTO) 4.83 MIL/uL (4.2-6.2); RED CELL DISTRIBUTION WIDTH 15.7 % (9.0-15.0); WHITE BLOOD COUNT (AUTO) 6.1 K/uL (4.8-10.8)
[2020-10-23 09:48] LABS: BILIRUBIN,URINE NEGATIVE (NEGATIVE); CLARITY/URINE SL CLOUDY (CLEAR); COLOR,URINE YELLOW (YELLOW); GLUCOSE,URINE 3+ (NEGATIVE); KETONES,URINE NEGATIVE (NEGATIVE); LEUKOCYTE ESTERASE ,URINE NEGATIVE (NEGATIVE); NITRITE, URINE NEGATIVE (NEGATIVE); PH,URINE 5.5 (5.0-8.0); PROTEIN URINE NEGATIVE (NEGATIVE); UROBILINOGEN,URINE 0.2 (0.2-1.0)
[2020-10-23 09:49] LABS: BLOOD, URINE TRACE (NEGATIVE)
[2020-10-23 09:59] LABS: BACTERIA,URINE FEW /HPF (None Seen); WBC,URINE 0-3 /HPF (0-3)
[2020-10-23 10:28] LABS: ALBUMIN 3.4 g/dL (3.4-4.8); CALCIUM 8.6 mg/dL (8.4-11.0); CREATININE 1.03 mg/dL (0.55-1.30); POTASSIUM 4.2 mmol/L (3.5-5.1); THYROID STIMULATING HORMONE 2.67 uIu/mL (0.34-4.82); TOTAL BILIRUBIN 0.5 mg/dL (0.0-1.0); URIC ACID 5.6 mg/dL (2.4-7.0)
[2020-10-24 07:13] LABS: HEMOGLOBIN A1C 11.7 % (4.8-5.6)
== END 2020-10-23 20:43 | disposition home or self-care (01) ==
LOC: SLB 08:56
PROVIDERS: ATTEND Internal Medicine
DX: E11.40 Type 2 diabetes mellitus with diabetic neuropathy, unspecified (principal); I10 Essential (primary) hypertension; M10.9 Gout, unspecified; E55.9 Vitamin D deficiency, unspecified; E56.9 Vitamin deficiency, unspecified; R42 Dizziness and giddiness
CPT/HCPCS: 36415; 80053; 80061; 81000-TC; 82306; 82607; 83036; 83690-TC; 84443-TC; 84550-TC; 85025; 87086

== ENCOUNTER 2021-06-27 15:47 | Emergency (ER) | payer BC, SELFPAY ==
[~2021-06-27] VITALS: Ht 165.1 cm; Wt 127.0 kg
[2021-06-27 15:47] VITALS: BP_SYST 142
[~2021-06-27 15:47] MED LIST changes: +METH-634 GT
[2021-06-27] MEDS ORDERED: LORazepam 1 MG TABLET PO ONE (16:30)
[2021-06-27] MEDS ORDERED: ONDANSETRON 4 MG ODT TAB PO ONE (16:30)
[2021-06-27 17:06] LABS: BASOPHILS % (AUTO) 0.4 % (0.0-2.0); EOSINOPHILS # (AUTO) 0.1 K/uL (0.0-0.4); EOSINOPHILS % (AUTO) 1.8 % (0.0-4.0); HEMATOCRIT 33.1 % (36-48); HEMOGLOBIN 10.4 g/dL (12.0-16.0); LYMPHOCYTES # (AUTO) 2.1 K/uL (1.0-5.5); LYMPHOCYTES % (AUTO) 27.8 % (20.5-51.5); MEAN CORPUSCULAR HEMOGLOBIN 23 pg (27-31); MEAN CORPUSCULAR HGB CONC 32 % (32-36); MEAN CORPUSCULAR VOLUME 73 fL (79.0-98.0); MONOCYTES # (AUTO) 0.5 K/uL (0.0-1.0); MONOCYTES % (AUTO) 6.4 % (1.7-9.3); NEUTROPHILS # (AUTO) 4.8 K/uL (1.8-7.7); NEUTROPHILS % (AUTO) 63.6 % (40.0-70.0); PLATELET COUNT (AUTO) 279 K/uL (130-430); RED BLOOD CELL COUNT(AUTO) 4.55 MIL/uL (4.2-6.2); RED CELL DISTRIBUTION WIDTH 17.2 % (9.0-15.0); WHITE BLOOD COUNT (AUTO) 7.5 K/uL (4.8-10.8)
[2021-06-27 17:08] LABS: ANION GAP 9 (5-15); CALCIUM 8.7 mg/dL (8.4-11.0); CHLORIDE 100 mmol/L (98-107); CREATININE 1.13 mg/dL (0.55-1.30); GLUCOSE 189 mg/dL (70-99); POTASSIUM 4.2 mmol/L (3.5-5.1); SODIUM SERUM 134 mmol/L (136-145); UREA NITROGEN, BLOOD 17 mg/dL (8-21)
[2021-06-27 17:10] LABS: GFR AFRICAN AMERICAN 67 mL/min (>90)
[2021-06-27 17:16] LABS: ALANINE AMINOTRANSFERASE 43 U/L (12-78); ALBUMIN 3.3 g/dL (3.4-4.8); ASPARTATE AMINOTRANSFERASE 19 U/L (10-37); TOTAL BILIRUBIN 0.2 mg/dL (0.0-1.0)
[2021-06-27] MEDS ORDERED: ONDA4TAB5 PO (18:08)
[2021-06-27 18:20] VITALS: BP_SYST 137
== END 2021-06-27 18:18 | disposition home or self-care (01) ==
LOC: SED 15:47
DX: R55 Syncope and collapse (principal); F41.9 Anxiety disorder, unspecified; I10 Essential (primary) hypertension; E11.9 Type 2 diabetes mellitus without complications; Z88.1 Allergy status to other antibiotic agents; Z88.0 Allergy status to penicillin; Z79.899 Other long term (current) drug therapy
CPT/HCPCS: 36415; 80053; 84484; 85025; 93005; 99284; Q0162

== ENCOUNTER 2021-10-07 09:04 | Outpatient (CLI) | payer BC ==
[~2021-10-07 09:04] MED LIST changes: +ONDA4TAB5 PO
[2021-10-07 11:19] LABS: BILIRUBIN,URINE NEGATIVE (NEGATIVE); BLOOD, URINE 3+ (NEGATIVE); CLARITY/URINE SL CLOUDY (CLEAR); COLOR,URINE YELLOW (YELLOW); GLUCOSE,URINE NEGATIVE (NEGATIVE); KETONES,URINE NEGATIVE (NEGATIVE); LEUKOCYTE ESTERASE ,URINE NEGATIVE (NEGATIVE); NITRITE, URINE NEGATIVE (NEGATIVE); PROTEIN URINE TRACE (NEGATIVE); UROBILINOGEN,URINE 0.2 (0.2-1.0)
[2021-10-07 11:26] LABS: BASOPHILS % (AUTO) 0.5 % (0.0-2.0); EOSINOPHILS # (AUTO) 0.1 K/uL (0.0-0.4); HEMATOCRIT 32.4 % (36-48); HEMOGLOBIN 10.1 g/dL (12.0-16.0); LYMPHOCYTES % (AUTO) 26.7 % (20.5-51.5); MEAN CORPUSCULAR HEMOGLOBIN 22 pg (27-31); MEAN CORPUSCULAR HGB CONC 31 % (32-36); MEAN CORPUSCULAR VOLUME 70 fL (79.0-98.0); MONOCYTES # (AUTO) 0.5 K/uL (0.0-1.0); MONOCYTES % (AUTO) 6.3 % (1.7-9.3); NEUTROPHILS # (AUTO) 4.9 K/uL (1.8-7.7); NEUTROPHILS % (AUTO) 65.5 % (40.0-70.0); PLATELET COUNT (AUTO) 294 K/uL (130-430); RED BLOOD CELL COUNT(AUTO) 4.65 MIL/uL (4.2-6.2); WHITE BLOOD COUNT (AUTO) 7.5 K/uL (4.8-10.8)
[2021-10-07 11:41] LABS: BACTERIA,URINE FEW /HPF (None Seen); WBC,URINE 0-3 /HPF (0-3)
[2021-10-07 11:46] LABS: ALBUMIN 3.1 g/dL (3.4-4.8); CALCIUM 8.4 mg/dL (8.4-11.0); CREATININE 1.01 mg/dL (0.55-1.30); POTASSIUM 4.6 mmol/L (3.5-5.1); TOTAL BILIRUBIN 0.3 mg/dL (0.0-1.0); URIC ACID 5.9 mg/dL (2.4-7.0)
[2021-10-07 12:15] LABS: THYROID STIMULATING HORMONE 1.63 uIu/mL (0.36-3.74)
== END 2021-10-07 20:16 | disposition home or self-care (01) ==
LOC: SLB 09:04
PROVIDERS: ATTEND Internal Medicine
DX: E11.65 Type 2 diabetes mellitus with hyperglycemia (principal); I10 Essential (primary) hypertension; E78.5 Hyperlipidemia, unspecified; E55.9 Vitamin D deficiency, unspecified; E56.9 Vitamin deficiency, unspecified; M10.9 Gout, unspecified
CPT/HCPCS: 36415; 80053; 80061; 81000; 82306; 82607; 83036; 84443; 84550; 85025

== ENCOUNTER 2023-09-06 09:58 | Emergency (ER) | payer BC ==
[~2023-09-06] VITALS: Ht 165.1 cm; Wt 120.2 kg
[~2023-09-06 09:58] MED LIST changes: -LOSA100T23 PO; +LOSA100T24 PO
[2023-09-06 10:01] VITALS: BP_SYST 152; PULSE 90; RESP 18; TEMP 98.3; O2SAT 99
[2023-09-06] MEDS ORDERED: FAMOTIDINE 20 MG TABLET PO ONE (10:30)
[2023-09-06] MEDS ORDERED: predniSONE 20 MG TABLET PO ONE (10:30)
[2023-09-06] MEDS ORDERED: PRED20TA PO (10:37)
[2023-09-06] MEDS ORDERED: BEN50 PO (10:38)
[2023-09-06 11:03] VITALS: BP_SYST 152; PULSE 90; RESP 18; TEMP 98.3; O2SAT 99
== END 2023-09-06 11:02 | disposition home or self-care (01) ==
LOC: SED 09:58
DX: R21 Rash and other nonspecific skin eruption (principal); T36.8X5A Adverse effect of other systemic antibiotics, initial encounter; I10 Essential (primary) hypertension; E11.9 Type 2 diabetes mellitus without complications; Z88.0 Allergy status to penicillin; Z88.1 Allergy status to other antibiotic agents; Z88.8 Allergy status to other drugs, medicaments and biological substances; Z79.899 Other long term (current) drug therapy; Y92.89 Other specified places as the place of occurrence of the external cause
CPT/HCPCS: 99283; J7512

== ENCOUNTER 2024-04-20 16:38 | Emergency (ER) | payer BC ==
[~2024-04-20] VITALS: Ht 165.1 cm; Wt 119.7 kg
[~2024-04-20 16:38] MED LIST changes: +BEN50 PO; +METO-304 PO; -METO-540 PO; +PRED20TA PO
[2024-04-20 16:51] VITALS: BP_SYST 110; PULSE 86; RESP 18; TEMP 98.2; O2SAT 97
[2024-04-20] MEDS ORDERED: HYDR-3921 PO (20:01)
[2024-04-20] MEDS ORDERED: ASPI-862 PO (20:01)
[2024-04-20 20:26] VITALS: BP_SYST 119; PULSE 100; RESP 20; TEMP 97.1; O2SAT 98
== END 2024-04-20 20:26 | disposition home or self-care (01) ==
LOC: SED 16:38
DX: M25.522 Pain in left elbow (principal); M79.632 Pain in left forearm; E11.9 Type 2 diabetes mellitus without complications; I10 Essential (primary) hypertension; F41.9 Anxiety disorder, unspecified; G89.29 Other chronic pain; Z88.0 Allergy status to penicillin; Z88.1 Allergy status to other antibiotic agents; Z88.8 Allergy status to other drugs, medicaments and biological substances; Z79.899 Other long term (current) drug therapy; Z79.2 Long term (current) use of antibiotics; Z79.82 Long term (current) use of aspirin
CPT/HCPCS: 73060; 73090; 99284